=== PATIENT | female | born 1945 | race American Indian/Alaskan Native ===

== ENCOUNTER 2017-02-10 10:04 | Outpatient (CLI) | payer MEDICARE ==
--- NOTE | 2017-02-10 11:34 | XRay Report ---
RIGHT SHOULDER: History: Right shoulder pain. Moderate osteoarthritic changes are identified at the a.c. joint and glenohumeral joint. No evidence for fracture, dislocation or ligamentous injury. Normal soft tissues. IMPRESSION: Osteoarthritic changes.
== END 2017-02-10 10:05 | disposition home or self-care (01) ==
LOC: SPVIMAG 10:04
DX: M25.511 Pain in right shoulder (principal)

== ENCOUNTER 2017-05-12 09:48 | Outpatient (CLI) | payer MEDICARE ==
--- NOTE | 2017-05-12 11:54 | XRay Report ---
CERVICAL SPINE, 3 views: History: Neck pain. Findings: Normal bone mineralization. There is mild reversal of normal cervical lordosis which could represent muscular spasm. Moderate degenerative disc narrowing at C5-6 and C6-7 are identified. The remaining levels are within normal limits. The facet joints are unremarkable. No evidence for fracture, subluxation or bone lesion. The prevertebral soft tissues are unremarkable. Impression: Cervical spondylosis. Mild reversal of the normal cervical lordosis. No acute process is appreciated.
== END 2017-05-12 09:49 | disposition home or self-care (01) ==
LOC: SPVIMAG 09:48
DX: M47.892 Other spondylosis, cervical region (principal); M48.02 Spinal stenosis, cervical region
CPT/HCPCS: 72040